=== PATIENT | female | born 1995 | race Caucasian/White ===

== ENCOUNTER 2020-09-07 05:43 | Inpatient (IN) ==
[2020-09-07] MEDS ORDERED: Ringers Solution, Lactated 1,000 ML ONE ×2 (06:14→07:24)
[2020-09-07] MEDS ORDERED: Metoclopramide 10 MG/2 ML VIAL IVP ONE (06:20)
[2020-09-07] MEDS ORDERED: Famotidine 20 MG/2 ML VIAL IVP ONE (06:20)
[2020-09-07] MEDS ORDERED: CeFAZolin Syr 3,000MG/30 ML 3,000 MG/30 ML SYRINGE IVPB ONE (06:20)
[2020-09-07 06:48] LABS: Basophils % 0.2 %; Eosinophils % 0.5 %; Hematocrit 37.5 % (35.3-44.9); Hemoglobin 12.6 g/dL (11.5-15.4); Immature Granulocytes % 0.6 % (0-4); Lymphocytes % 23.1 %; Mean Corpuscular HGB Conc 33.6 g/dL (31.6-35.5); Mean Corpuscular Hemoglobin 32.6 pg (28.0-33.3); Mean Corpuscular Volume 97.2 fL (83.0-100.0); Mean Platelet Volume 10.8 fL (9.4-12.4); Monocytes # 0.6 K/mcL (0.0-1.3); Monocytes % 7.3 %; Neutrophils # 5.9 K/mcL (1.6-8.9); Platelet Count 223 K/mcL (140-400); Red Blood Count 3.86 M/mcL (3.82-4.97); Segmented Neutrophils % 68.3 %; White Blood Count 8.6 K/mcL (4.3-11.1)
[2020-09-07] MEDS ORDERED: *HR* Morphine Sulfate/PF 10 MG/10 ML AMPUL ONE (06:55)
[2020-09-07] MEDS ORDERED: *HR* FentaNYL (PF) 100 MCG/2 ML VIAL ONE (06:56)
[2020-09-07] MEDS ORDERED: Ondansetron 4 MG/2 ML VIAL ONE (06:58)
[2020-09-07] MEDS ORDERED: Dexamethasone 4 MG/ML VIAL ONE (06:58)
[2020-09-07] MEDS ORDERED: CeFAZolin 2,000 MG/50 ML BAG IVPB ONE (08:00)
[2020-09-07] MEDS ORDERED: Ondansetron 4 MG/2 ML VIAL IVP PRN ×2 (08:28→12:02)
[2020-09-07] MEDS ORDERED: *HR* HYDROmorphone PF 0.5 MG/0.5 ML SYRINGE IVP PRN (08:28)
[2020-09-07] MEDS ORDERED: Acetaminophen IV 1,000 MG/100 ML BAG IVPB ONE (08:30)
[2020-09-07 08:32] LABS: Amphetamine Screen,Urine Negative ng/mL (Cutoff=1000); Barbiturate Screen,Urine Negative ng/mL (Cutoff=200); Benzodiazepines Screen,Urine Negative ng/mL (Cutoff=200); Cannabinoid Screen,Urine Negative ng/mL (Cutoff = 50); Cocaine Screen,Urine Negative ng/mL (Cutoff= 300); Opiate Screen,Urine Negative ng/mL (Cutoff=300); Phencyclidine Screen,Urine Negative ng/mL (Cutoff=25)
[2020-09-07] MEDS ORDERED: *HR* HYDROMORPHONE 2 MG/ML VIAL ONE (08:51)
[2020-09-07] MEDS ORDERED: Sennosides 8.6 MG TABLET PO PRN (12:02)
[2020-09-07] MEDS ORDERED: *HR* OxyCODONE/APAP 5/325 TABLET PO PRN (12:02)
[2020-09-07] MEDS ORDERED: Rho Immune Globulin 1,500 UNIT SYRINGE IM ONE (12:02)
[2020-09-07] MEDS ORDERED: Metoclopramide 10 MG/2 ML VIAL IVP PRN (12:02)
[2020-09-07] MEDS ORDERED: *HR* OxyCODONE Immed Rel 5 MG TABLET PO PRN (12:02)
[2020-09-07] MEDS ORDERED: Simethicone 80 MG TAB.CHEW PO PRN (12:02)
[2020-09-07] MEDS ORDERED: Oxytocin 20 units/ LR 1000 mL 20 UNIT/1,000 ML BAG IVC SCH (12:02)
[2020-09-07] MEDS: Acetaminophen 325 MG TABLET PO PRN (12:25)
[2020-09-07] MEDS: Ibuprofen 600 MG TABLET PO PRN ×2 (14:50→21:09)
[2020-09-07] MEDS ORDERED: Scopolamine Patch 1.5 MG PATCH.TD72 TD ONE (18:23)
[2020-09-08 05:26] LABS: Basophils % 0.3 %; Eosinophils # 0.1 K/mcL (0.0-0.6); Eosinophils % 0.5 %; Hematocrit 30.8 % (35.3-44.9); Hemoglobin 10.3 g/dL (11.5-15.4); Immature Granulocytes % 0.4 % (0-4); Lymphocytes # 2.4 K/mcL (0.6-4.6); Mean Corpuscular HGB Conc 33.4 g/dL (31.6-35.5); Mean Corpuscular Hemoglobin 32.6 pg (28.0-33.3); Mean Corpuscular Volume 97.5 fL (83.0-100.0); Mean Platelet Volume 10.6 fL (9.4-12.4); Monocytes # 0.5 K/mcL (0.0-1.3); Monocytes % 5.5 %; Neutrophils # 6.8 K/mcL (1.6-8.9); Platelet Count 173 K/mcL (140-400); Red Blood Count 3.16 M/mcL (3.82-4.97); Red Cell Distribution Width 11.9 % (11.5-14.5); Segmented Neutrophils % 69.3 %; White Blood Count 9.8 K/mcL (4.3-11.1)
[2020-09-08] MEDS: Prenatal Vit/FA 1 EACH TABLET PO SCH (07:50)
[2020-09-08] MEDS: Ibuprofen 600 MG TABLET PO PRN ×3 (07:51→23:15)
[2020-09-08] MEDS: Acetaminophen 325 MG TABLET PO PRN (20:41)
[2020-09-09] MEDS: Acetaminophen 325 MG TABLET PO PRN (05:23)
[2020-09-09] MEDS: Ibuprofen 600 MG TABLET PO PRN (08:28)
[2020-09-09] MEDS: Prenatal Vit/FA 1 EACH TABLET PO SCH (08:29)
[2020-09-09 10:39] VITALS: BP 116/70
== END 2020-09-09 13:29 | disposition home or self-care (01) | DRG 787 ==
LOC: SAMDAY 05:43 → 1NENULAB 05:48 → 1NENUOBS 11:09
PROVIDERS: ADMIT Obstetrics & Gynecology; ATTEND Obstetrics & Gynecology